=== PATIENT | female | born 1955 | race Caucasian/White ===

== ENCOUNTER → 2016-06-27 | Outpatient (CLI) | payer OTHER | LOC: FIMAGING 10:54 | DX: Z12.31 Encounter for screening mammogram for malignant neoplasm of breast (principal); Z80.3 Family history of malignant neoplasm of breast | CPT/HCPCS: G0202 ==

== ENCOUNTER 2016-08-01 17:05 | Emergency (ER) | payer OTHER ==
[2016-08-01 17:12] VITALS: BP 137/87; PULSE 86; RESP 16; TEMP 97.7; O2SAT 97
[2016-08-01] MEDS ORDERED: TDAP ADULT 0.5 ML INJ (BOOSTRIX) IM ONE (17:27)
--- NOTE | 2016-08-01 17:39 | EDPHY ---
H & P Time Seen by Provider: 08/01/16 17:08 HPI/ROS: CHIEF COMPLAINT: Left foot injury HISTORY OF PRESENT ILLNESS: 61-year-old female presents to the emergency department with injury to her left foot. Patient was at home just prior to arrival and dropped heavy mirror on the dorsal aspect of her left foot. She was barefoot at the time. She complains of isolated, severe pain to her left foot. She states initially she was able to bear weight, however now she has developed significant swelling is unable to bear full weight without severe pain. Denies any other trauma or injury. She is unsure of her last tetanus shot. ROS: Denies numbness or tingling in her toes, pain in her left ankle or calf. Past Medical/Surgical History: Orthopedic surgeries, arthritis, melanoma Social History: and lives in [place]. She is retired. Smoking Status: Never smoked Physical Exam: Examination of the left foot reveals significant soft tissue swelling to the dorsal aspect of her left foot especially over the 1st and 2nd metatarsals. There is a superficial abrasion noted to the base of the 1st metatarsal. There is no palpable crepitus or other bony abnormality. She has mild pain with palpation along the 1st metatarsal especially. She is able to dorsi and plantar flex. She is unable to bear full weight due to pain. Her left ankle is nontender and stable. She has normal sensation to light touch with normal 2 point discrimination. Well-healed surgical incisions between the 3rd and 4th metatarsals on the dorsal aspect of her left foot and lives well as along the medial aspect of her left foot overlying the 1st metatarsal. Constitutional: Initial Vital Signs Temperature (C) 36.5 C 08/01/16 17:09 Heart Rate 86 08/01/16 17:09 Respiratory Rate 16 08/01/16 17:09 Blood Pressure 137/87 H 08/01/16 17:09 O2 Sat (%) 97 08/01/16 17:09 O2 Delivery Mode Room Air Allergies/Adverse Reactions: bacitracin Allergy (Verified 08/01/16 17:08) oxycodone Allergy (Verified 08/01/16 17:08) oxycodone HCl [From OxyContin] Allergy (Verified 08/01/16 17:08) Sulfa (Sulfonamide Antibiotics) Allergy (Verified 08/01/16 17:08) Home Medications: Medication Instructions Recorded Celexa 05/16/17 METHIMAZOLE 08/01/16 Trileptal 08/01/16 VYVANSE 08/01/16 MDM/Departure - MDM Diagnostics: X-rays of the left foot reveal no fractures. This is reviewed by myself the PAC system. Imaging Results: Imaging Impressions Foot X-Ray 08/01/16 17:13 Impression: 1. Extensive soft tissue swelling with no acute osseous findings. 2. Probable erosion in the head of the third metatarsal. 3. Additional findings as above. Imaging: I viewed and interpreted images myself Procedures: The patient's wound was cleansed and dressed. She was placed in a postop shoe and examined post application in good placement with normal DISPOSAL WORKER. She declined crutches. Medications Given: Discontinued Medications Diphtheria/Tetanus/Acell Pertussis (Boostrix) 0.5 ml IM .ONCE ONE Stop: 08/01/16 17:28 Last Admin: 08/01/16 17:39 Dose: 0.5 ml ED Course/Re-evaluation: 7-year-old female presents with left foot injury. X-rays reveal no fractures. She was placed in a postop shoe and given orthopedic referral at the [facility] since her primary care provider is Dr. Ciarra Logan. - Depart Disposition: Home, Routine, Self-Care Clinical Impression: Contusion of left foot Qualifiers: Encounter type: initial encounter Qualified Code(s): S90.32XA - Contusion of left foot, initial encounter Abrasion of left foot Qualifiers: Encounter type: initial encounter Qualified Code(s): S90.812A - Abrasion, left foot, initial encounter Condition: Good Instructions: Foot Contusion (ED), Abrasion (ED), Acute Wounds (ED) Additional Instructions: Postop shoe for comfort and support. Return if you notice any signs or symptoms of infection such as redness, swelling, increased pain, fever, purulent drainage. Ibuprofen 600 mg every 8 hours as needed for pain. Referrals: Ciarra Logan MD [Primary Care Provider] - As per Instructions Chris Silverman MD [Medical Doctor] - 2-3 days without fail ([facility] orthopedic surgeon)
== END 2016-08-01 17:53 | disposition home or self-care (01) ==
DX: S90.32XA Contusion of left foot, initial encounter (principal); S90.812A Abrasion, left foot, initial encounter; Z23 Encounter for immunization; Z85.820 Personal history of malignant melanoma of skin; W20.8XXA Other cause of strike by thrown, projected or falling object, initial encounter; Y92.009 Unspecified place in unspecified non-institutional (private) residence as the place of occurrence of the external cause; Y99.8 Other external cause status; Y93.89 Activity, other specified

== ENCOUNTER → 2016-08-08 | Outpatient (CLI) | payer OTHER | LOC: BMCIMAGING 12:15 | PROVIDERS: ATTEND Internal Medicine | DX: S99.922D Unspecified injury of left foot, subsequent encounter (principal); X58.XXXD Exposure to other specified factors, subsequent encounter ==

== ENCOUNTER 2017-03-08 05:41 | Day surgery (SDC) | payer OTHER ==
[2017-03-08] MEDS ORDERED: LIDOCAINE 1% 2 ML INJ ID PRN (06:04)
[2017-03-08] MEDS ORDERED: LR 1,000 ML IV ONE (06:04)
[2017-03-08] MEDS ORDERED: DEXAMETHASONE 4 MG/ML VIAL IVP ONE (06:45)
[2017-03-08] MEDS ORDERED: ceFAZolin 2 GM/SWFI 2 GM/20 ML SYR IVP ONE (06:45)
--- NOTE | 2017-03-08 06:45 | PDHPUP ---
History & Physical Update H&P update statement: This history and physical update is based on an assessment of the patient which was completed after admission or registration (within 24 hours), but prior to the surgery/procedure. H&P update: H&P reviewed & patient examined, no change in patient's condition since H&P completed (We discussed the procedure of left hemithyroidectomy and informed consent was obtained)
[2017-03-08] MEDS ORDERED: THROMBIN (BOVINE) 5,000 UNIT VIAL TP ONE (06:58)
[2017-03-08] MEDS ORDERED: BUPIVACAINE 0.25% 30 ML SDV ONE (06:58)
[2017-03-08] MEDS ORDERED: LR 1,000 ML IV SCH (07:00)
[2017-03-08] MEDS ORDERED: SCOPOLAMINE HYDROBROMIDE 1 MG/3 DAYS PATCH TD ONE ×2 (07:06→07:07)
[2017-03-08] MEDS ORDERED: MIDAZOLAM 2 MG/2 ML VIAL ONE (07:06)
[2017-03-08] MEDS ORDERED: MIDAZOLAM 2 MG/2 ML VIAL IVP ONE ×2 (07:08→09:38)
--- NOTE | 2017-03-08 07:09 | PDANEPAE ---
ANE History of Present Illness hyperthyroidism ANE Past Medical History - Cardiovascular History Hx Hypertension: No Hx Arrhythmias: Yes Hx Chest Pain: No Hx Coronary Artery / Peripheral Vascular Disease: No Hx CHF / Valvular Disease: No Hx Palpitations: No Cardiovascular History Comment: PSVT - Pulmonary History Hx COPD: No Hx Asthma/Reactive Airway Disease: No Hx Recent Upper Respiratory Infection: No Hx Oxygen in Use at Home: No Hx Sleep Apnea: No Sleep Apnea Screening Result - Last Documented: Negative - Neurologic History Hx Cerebrovascular Accident: No Hx Seizures: No Hx Dementia: No - Endocrine History Hx Diabetes: No - Renal History Hx Renal Disorders: No - Liver History Hx Hepatic Disorders: No - Neurological & Psychiatric Hx Hx Neurological and Psychiatric Disorders: Yes Neurological / Psychiatric History Comment: ANXIETY - Cancer History Hx Cancer: Yes Cancer History Comment: MELANOMA 1994 - Congenital Disorder History Hx Congenital Disorders: No - GI History Hx Gastrointestinal Disorders: No - Other Health History Other Health History: CHIPPED FRONT TOOTH - Chronic Pain History Chronic Pain: No - Surgical History Prior Surgeries: foot sx 2012 ANE Review of Systems Review of Systems: - Exercise capacity METS (RN): 5 METS ANE Patient History - Allergies Allergies/Adverse Reactions: bacitracin Allergy (Intermediate, Verified 03/07/17 16:06) Hives Sulfa (Sulfonamide Antibiotics) Allergy (Intermediate, Verified 03/07/17 16:06) Hives oxycodone Allergy (Mild, Verified 03/07/17 16:06) Itching oxycodone HCl [From OxyContin] Allergy (Mild, Verified 03/07/17 16:06) Itching - Home Medications Home medications: home medication list seen and reviewed Home Medications: Celexa 08/01/16 [Last Taken 1 Day Ago ~03/07/17] METHIMAZOLE 08/01/16 [Last Taken 1 Day Ago ~03/07/17] Trileptal 08/01/16 [Last Taken 1 Day Ago ~03/07/17] VYVANSE 08/01/16 [Last Taken 1 Day Ago ~03/07/17] - NPO status NPO Status: no food or drink >8 hours NPO Since - Liquids (Date): 03/07/17 NPO Since - Liquids (Time): 19:00 NPO Since - Solids (Date): 03/07/17 NPO Since - Solids (Time): 19:00 - Smoking Hx Smoking Status: Never smoked - Family Anes Hx Family Hx Anesthesia Complications: n/v ANE Labs/Vital Signs - Vital Signs Vital Signs: reviewed preoperatively; see RN documention for details Blood Pressure: 117/81 Heart Rate: 68 Respiratory Rate: 18 O2 Sat (%): 93 Height: 170.18 cm Weight: 65.771 kg ANE Physical Exam - Airway Neck exam: FROM Mallampati Score: Class 1 Mouth exam: normal dental/mouth exam - Pulmonary Pulmonary: no respiratory distress - Cardiovascular Cardiovascular: regular rate and rhythym - ASA Status ASA Status: II ANE Anesthesia Plan Anesthesia Plan: general endotracheal anesthesia
[2017-03-08 07:11] LABS: CALCIUM 9.3 mg/dL (8.5-10.4); CREATININE 0.7 mg/dL (0.6-1.0)
[2017-03-08] MEDS ORDERED: DEXAMETHASONE 4 MG/ML VIAL ONE (07:13)
[2017-03-08] MEDS ORDERED: ONDANSETRON 4 MG/2 ML VIAL ONE (07:13)
[2017-03-08] MEDS ORDERED: LIDOCAINE 2% 5 ML SDV ONE (07:13)
[2017-03-08] MEDS ORDERED: fentaNYL 100 MCG/2 ML INJ ONE ×3 (07:13→09:48)
[2017-03-08] MEDS ORDERED: ROCURONIUM 50 MG/5 ML VIAL ONE (07:13)
[2017-03-08] MEDS ORDERED: PROPOFOL 200 MG/20 ML VIAL ONE (07:14)
[2017-03-08 07:24] LABS: PTH INTACT NO MINERALS 40.9 pg/ml (10.8-79.4)
[2017-03-08] MEDS ORDERED: PROMETHAZINE HCL 25 MG/ML INJ IVP PRN (08:01)
[2017-03-08] MEDS ORDERED: HYDROmorphONE/DILAUDID 1 MG/ML INJ IVP PRN (08:01)
[2017-03-08] MEDS ORDERED: ONDANSETRON 4 MG/2 ML VIAL IVP PRN (08:01)
[2017-03-08] MEDS ORDERED: NALOXONE HCL 0.4 MG/ML INJ IVP PRN (08:01)
--- NOTE | 2017-03-08 08:54 | POSTANESTH ---
Post Anesthetic Evaluation Cardiovascular Status: Normal, Stable Respiratory Status: Normal, Stable Level of Consciousness/Mental Status: Can Participate in Eval Pain Control: Adequate, Prn Tx Ordered Nausea/Vomiting Control: Adequate, Prn Tx Ordered Complications Possibly Related to Anesthesia: None Noted
--- NOTE | 2017-03-08 08:56 | POSTOPPROG ---
Post Op Note Date of Operation: 03/08/17 Surgeon: Jose David Gan (, FACS) Manager Six Sigma: Marilin Bishop RN-FA Anesthesiologist: Tripp Castro MD Anesthesia: GET(General Endotracheal) Pre-op Diagnosis: left thyroid nodule/hyperthryoidism Post-op Diagnosis: same Indication: hyperfunctioning left thyroid nodule Procedure: left hemithyroidectomy Findings: benign on frozen section Inf/Abcess present in the surg proc area at time of surgery?: No Specimen(s): left thyroid lobe
[2017-03-08] MEDS ORDERED: IBUPROFEN 600 MG TAB PO PRN (09:00)
[2017-03-08] MEDS ORDERED: D5W 1/2 NS W/ 20 KCl/L 1,000 ML IV SCH (09:00)
[2017-03-08] MEDS ORDERED: traMADol 50 MG TAB PO PRN (09:00)
[2017-03-08 09:15] VITALS: TEMP 97.9
--- NOTE | 2017-03-08 09:40 | PDANEPAE ---
ANE History of Present Illness l foot gout bump ANE Past Medical History - Cardiovascular History Hx Hypertension: No Hx Arrhythmias: Yes Hx Chest Pain: No Hx Coronary Artery / Peripheral Vascular Disease: Yes Hx CHF / Valvular Disease: Yes Hx Palpitations: No Cardiovascular History Comment: PSVT - Pulmonary History Hx COPD: No Hx Asthma/Reactive Airway Disease: No Hx Recent Upper Respiratory Infection: No Hx Oxygen in Use at Home: No Hx Sleep Apnea: No Sleep Apnea Screening Result - Last Documented: Negative - Neurologic History Hx Cerebrovascular Accident: No Hx Seizures: No Hx Dementia: No - Endocrine History Hx Diabetes: No - Renal History Hx Renal Disorders: No - Liver History Hx Hepatic Disorders: No - Neurological & Psychiatric Hx Hx Neurological and Psychiatric Disorders: Yes Neurological / Psychiatric History Comment: ANXIETY - Cancer History Hx Cancer: Yes Cancer History Comment: MELANOMA 1994 - Congenital Disorder History Hx Congenital Disorders: No - GI History Hx Gastrointestinal Disorders: No - Other Health History Other Health History: CHIPPED FRONT TOOTH - Chronic Pain History Chronic Pain: No - Surgical History Prior Surgeries: foot sx 2012 ANE Review of Systems Review of Systems: - Exercise capacity METS (RN): 5 METS ANE Patient History - Allergies Allergies/Adverse Reactions: bacitracin Allergy (Intermediate, Verified 03/07/17 16:06) Hives Sulfa (Sulfonamide Antibiotics) Allergy (Intermediate, Verified 03/07/17 16:06) Hives oxycodone Allergy (Mild, Verified 03/07/17 16:06) Itching oxycodone HCl [From OxyContin] Allergy (Mild, Verified 03/07/17 16:06) Itching - Home Medications Home Medications: Celexa 08/01/16 [Last Taken 1 Day Ago ~03/07/17] METHIMAZOLE 08/01/16 [Last Taken 1 Day Ago ~03/07/17] Trileptal 08/01/16 [Last Taken 1 Day Ago ~03/07/17] VYVANSE 08/01/16 [Last Taken 1 Day Ago ~03/07/17] - NPO status NPO Status: no food or drink >8 hours NPO Since - Liquids (Date): 03/07/17 NPO Since - Liquids (Time): 19:00 NPO Since - Solids (Date): 03/07/17 NPO Since - Solids (Time): 19:00 - Smoking Hx Smoking Status: Never smoked - Family Anes Hx Family Hx Anesthesia Complications: n/v ANE Labs/Vital Signs - Vital Signs Blood Pressure: 127/86 Heart Rate: 68 Respiratory Rate: 16 O2 Sat (%): 100 Height: 170.18 cm Weight: 65.771 kg ANE Physical Exam - Airway Neck exam: FROM Mallampati Score: Class 2 Mouth exam: normal dental/mouth exam - Pulmonary Pulmonary: no respiratory distress - Cardiovascular Cardiovascular: regular rate and rhythym - ASA Status ASA Status: IV ANE Anesthesia Plan Anesthesia Plan: MAC
[2017-03-08] MEDS: fentaNYL 100 MCG/2 ML INJ IVP PRN ×2 (09:49→10:01)
[2017-03-08 10:42] VITALS: PULSE 59; RESP 16
--- NOTE | 2017-03-08 10:59 | GOP ---
[f rep st] OPERATIVE REPORT DATE OF OPERATION: 03/08/2017 SURGEON: Jose David Gan MD SOIL BIOLOGY TEACHER: PRISCILA Bella ANESTHESIA: General endotracheal. ANESTHESIOLOGIST: Frantz Castro MD PREOPERATIVE DIAGNOSIS: 1. Left thyroid nodule, hyperfunctioning. 2. Hyperthyroidism. POSTOPERATIVE DIAGNOSIS: 1. Left thyroid nodule, hyperfunctioning. 2. Hyperthyroidism. PROCEDURE PERFORMED: Left hemithyroidectomy. FINDINGS: Soft partially cystic mass in the left thyroid lobe, excised with the remainder of the lef t lobe and submitted for frozen and permanent section. No evidence of malignancy on frozen section p er Dr. Jeong. ESTIMATED BLOOD LOSS: 50 mL. DESCRIPTION OF PROCEDURE: After informed consent was obtained, the patient was brought to the operat ing room and placed under general anesthesia. The neck was prepped and draped in the usual sterile f ashion. Before proceeding, a time-out and identification of the patient was performed. Then 0.25% Marcaine was used to infiltrate the planned incision site. A transverse incision was made between the heads of the sternocleidomastoid muscle, and dissection carried through the skin and sub cutaneous tissues and platysma muscle. Flaps were elevated cephalad to the cricothyroid membrane inf eriorly to the suprasternal notch. The strap muscles were mobilized in the midline and retracted to the left, the strap muscles from the underlying thyroid gland. The thyroid was particular ly vascular and contained a soft cystic nodule in the inferior portion. The superior thyroidal vesse ls were dissected and divided with the Harmonic Scalpel. The inferior pole vessels were dispatched i n a similar fashion, as was the middle thyroid vein. The gland was then rotated from lateral to medi al, exposing the ligament of Doll, which was divided and dissection kept close to the capsule of the gland, avoiding deep dissection because of the vascularity noted. Sparing use of cautery with bipol ar forceps and hemoclips were used in obtaining hemostasis. After the ligament of Doll had been div ided, the gland was along with the isthmus using the Harmonic Scalpel and was submitted for permanent section. Dr. Jeong reported a firm area within the gland that appeared fibrotic on froze n section. There was no evidence of malignancy. Further dissection for identification of the recurr ent laryngeal nerve and parathyroid glands was abandoned because of the dense vascularity of the surr ounding tissues and propensity to bleeding with even the most gentle dissection. Topical Surgicel wa s applied. Hemostasis appeared secure upon completion. The strap muscles were approximated in the m idline with 3-0 Vicryl suture. The platysma muscle was approximated with 3-0 Vicryl suture, and the skin was closed with 4-0 Monocryl suture in a subcuticular fashion. Mastisol and Steri-Strips were a pplied. The patient was returned extubated to the recovery room in satisfactory condition. Needle, sponge and instrument counts were correct. COMPLICATIONS: None. /[id number]/MODL
[2017-03-08 11:37] VITALS: BP 109/70; O2SAT 94
== END 2017-03-08 11:38 | disposition home or self-care (01) ==
LOC: FSGY 05:41
PROVIDERS: ATTEND Surgery
PROC: 0GBG0ZZ Excision of Left Thyroid Gland Lobe, Open Approach (ICD-10-PCS; principal; 2017-03-08 07:15)
DX: E05.10 Thyrotoxicosis with toxic single thyroid nodule without thyrotoxic crisis or storm (principal)
CPT/HCPCS: J0690; J1100; J2250; J2405; J2704; J3010

== ENCOUNTER → 2017-06-14 | Outpatient (CLI) | payer OTHER ==
[~2017-06-14] MED LIST: GADOBUTROL 10 ML VIAL IVP ONE
== END ==
LOC: FIMAGING 14:32
PROVIDERS: ATTEND Psychiatry & Neurology Neurology
DX: R90.82 White matter disease, unspecified (principal); D18.02 Hemangioma of intracranial structures
CPT/HCPCS: A9585

== ENCOUNTER → 2017-06-28 | Outpatient (CLI) | payer OTHER | LOC: FIMAGING 10:24 | PROVIDERS: ATTEND Internal Medicine | DX: Z12.31 Encounter for screening mammogram for malignant neoplasm of breast (principal) ==

== ENCOUNTER → 2017-07-10 | Outpatient (CLI) | payer OTHER | LOC: FIMAGING 13:22 | PROVIDERS: ATTEND Internal Medicine | DX: R92.8 Other abnormal and inconclusive findings on diagnostic imaging of breast (principal) ==

== ENCOUNTER → 2018-07-05 | Outpatient (CLI) | payer OTHER | LOC: FIMAGING 08:38 | PROVIDERS: ATTEND Internal Medicine | DX: Z12.31 Encounter for screening mammogram for malignant neoplasm of breast (principal) ==